=== PATIENT | male | born 1980 | race Caucasian/White ===

== ENCOUNTER 2017-08-24 12:48 | Day surgery (SDC) | payer BC, OTHER ==
[~2017-08-24 12:48] MED LIST: Acetaminophen/HYDROcodone 325-5 MG Tab PO PRN; Lactated Ringers 1,000 ML IV SCH; ceFAZolin 1 GM in Premix Bag 1 BAG IV SCH
[2017-08-24] MEDS ORDERED: Bupivacaine 0.5% 10 ML SDV ONE (13:59)
--- NOTE | 2017-08-24 14:38 | PCM.PREANE ---
Preanesthetic Assessment - Anesthesia/Transfusion/Family Hx Anesthesia History: Prior Anesthesia Without Reaction Transfusion History: No Prior Transfusion(s) - Review of Systems General: No Symptoms Pulmonary: No Symptoms Cardiovascular: No Symptoms Gastrointestinal: No Symptoms Neurological: No Symptoms Other: Reports: None - Physical Assessment NPO Status Date: 08/23/17 NPO Status Time: 21:00 O2 Sat by Pulse Oximetry: 97 Respiratory Rate: 16 Vital Signs: Last Vital Signs Temp 98.1 F 08/24/17 13:00 Pulse 72 08/24/17 13:00 Resp 16 08/24/17 13:00 BP 124/82 08/24/17 13:00 Pulse Ox 97 08/24/17 13:00 Height: 5 ft 7.5 in Weight: 79.379 kg ASA Class: 1 Mental Status: Alert & Oriented x3 Airway Class: Mallampati = 1 Dentition: Reports: Normal Dentition Thyro-Mental Finger Breadths: 3 Mouth Opening Finger Breadths: 3 ROM/Head Extension: Full Lungs: Clear to Auscultation, Normal Respiratory Effort Cardiovascular: Regular Rate, Regular Rhythm - Allergies Allergies/Adverse Reactions: Allergies Allergy/AdvReac Type Severity Reaction Status Date / Time No Known Allergies Allergy Verified 08/22/17 09:43 - Acknowledgements Anesthesia Type Planned: General Anesthesia, MAC Pt an Appropriate Candidate for the Planned Anesthesia: Yes Alternatives and Risks of Anesthesia Discussed w Pt/Guardian: Yes Pt/Guardian Understands and Agrees with Anesthesia Plan: Yes PreAnesthesia Questionnaire HEENT History: Reports: Other (See Below) Other HEENT History: wears glasses/contacts Cardiovascular History: Reports: None Respiratory History: Reports: None Gastrointestinal History: Reports: None Genitourinary History: Reports: None Musculoskeletal History: Reports: None Neurological History: Reports: None Psychiatric History: Reports: None Endocrine/Metabolic History: Reports: None Hematologic History: Reports: None Immunologic History: Reports: None Oncologic (Cancer) History: Reports: None Dermatologic History: Reports: None - Past Surgical History Head Surgeries/Procedures: Reports: None HEENT Surgical History: Reports: Other (See Below) Other HEENT Surgeries/Procedures: eye surgery at 5 y/o - SUBSTANCE USE Smoking Status *Q: Never Smoker Recreational Drug Use History: No - HOME MEDS Home Medications: Home Meds . [No Known Home Meds] 08/22/17 [History] - CURRENT (IN HOUSE) MEDS Current Meds: Current Medications Hydrocodone Bitart/Acetaminophen ([place] 325-5 Mg) 1 - 2 tab PO Q4H PRN PRN Reason: Pain Cefazolin Sodium/Dextrose 1 gm (/ Premix) 50 mls @ 100 mls/hr IV ONCALL CHICA Lactated Ringer's (Ringers, Lactated) 1,000 mls @ 100 mls/hr IV ASD[facility]ED [facility] Last Admin: 08/24/17 13:10 Dose: 100 mls/hr Discontinued Medications Bupivacaine HCl (Sensorcaine-Mpf 0.5%) Confirm Administered Dose 10 ml .ROUTE .STK-MED ONE Stop: 08/24/17 14:00
[2017-08-24] MEDS ORDERED: Propofol 200 MG/20 ML SDV ONE (14:40)
[2017-08-24] MEDS ORDERED: Lidocaine 2% 5 ML SDV ONE (14:40)
[2017-08-24] MEDS ORDERED: fentaNYL 100 MCG/2 ML SDV ONE (14:41)
[2017-08-24] MEDS ORDERED: Midazolam 1 MG/ML 2 ML SDV ONE (14:41)
--- NOTE | 2017-08-24 16:07 | PCM.OPNOTE ---
- General Post-Op/Procedure Note Date of Surgery/Procedure: 08/24/17 Operative Procedure(s): Excision bony nodule R olecranon Post-Op Diagnosis: Bony nodule R elbow Anesthesia Technique: General LMA Primary Surgeon: Aileen Elizabeth Lead Atg Developer: Daniel Mayo in mLs: 5 Condition: Good Free Text/Narrative:: tt= #[id number]
[2017-08-24] MEDS ORDERED: fentaNYL 100 MCG/2 ML SDV IVPUSH PRN (16:14)
--- NOTE | 2017-08-24 16:35 | PCM.POSTAN ---
POST ANESTHESIA ASSESSMENT - MENTAL STATUS Mental Status: Alert, Oriented - RESPIRATORY Respiratory Status: Respiratory Rate WNL, Airway Patent, O2 Saturation Stable - CARDIOVASCULAR CV Status: Pulse Rate WNL, Blood Pressure Stable - GASTROINTESTINAL GI Status: No Symptoms - POST OP HYDRATION Hydration Status: Adequate & Stable
--- NOTE | 2017-08-24 17:03 | PCM48HPAN ---
Post Anesthesia Note - EVALUATION WITHIN 48HRS OF ANESTHETIC Vital Signs in Normal Range: Yes Patient Participated in Evaluation: Yes Respiratory Function Stable: Yes Airway Patent: Yes Cardiovascular Function Stable: Yes Hydration Status Stable: Yes Pain Control Satisfactory: Yes Nausea and Vomiting Control Satisfactory: Yes Mental Status Recovered: Yes Resp Rate: 15
--- NOTE | 2017-08-25 08:34 | OR ---
SURGEON: Aileen Elizabeth MD DATE OF PROCEDURE: 08/24/2017 PREOPERATIVE DIAGNOSIS: Painful bony nodule, right elbow. POSTOPERATIVE DIAGNOSIS: Painful bony nodule, right elbow. PROCEDURE: Excision of bony nodule, right elbow. ARBORIST CLIMBER: Daniel Mayo MD, PGY3. ANESTHESIA: General. ESTIMATED BLOOD LOSS: 5 mL. TOURNIQUET TIME: . COMPLICATIONS: None. DVT PROPHYLAXIS: Not indicated. IMPLANTS USED: None. BRIEF HISTORY: Daniel is a 37-year-old male, who has had complaint of point tenderness over the tip of his elbow with pressure. He is able to isolate the pain to one small area and states he feels there is a bony nodule present. X-rays were negative. He had tried elbow pad, as well as conservative treatment, which had not given him lasting relief. At that time, I recommended surgical intervention. The risks and goals of procedure were discussed with the patient and were documented preoperatively. He agreed to proceed. DESCRIPTION OF PROCEDURE: The patient was properly identified and brought to the operating room. He was transferred from the OR cart and placed on the operating room table in supine position. General anesthesia was administered. After adequate anesthesia was obtained, a well-padded tourniquet was applied to the right upper extremity. The right upper extremity was then prepped in standard fashion using ChloraPrep solution. It was then sterilely draped. A time-out was performed to ensure correct site and procedure. Preoperative antibiotics were given. The surgical site had been marked preoperatively. The tourniquet was inflated to 250 mmHg. The site of the tenderness had been identified preoperatively. The marking was still in place. An incision was made centered over this. Subcutaneous tissues were dissected down to the level of the olecranon. A small bony nodule was palpable. This was removed with a rongeur. No inflammation was noted in the area. The wound was then copiously irrigated with saline solution. Tourniquet was deflated. No excess bleeding was noted. The deep tissues were closed with 3-0 Vicryl and the skin was closed with a running 3-0 nylon. 0.5% Marcaine was injected along the wound. Xeroform gauze was placed over the wound and a bulky dressing was applied. He was awakened from his anesthetic and transferred back to the operating room cart. He was brought to recovery room in stable condition. All needle and sponge counts were correct. KARL / JEROME /[id number]
--- NOTE | 2017-10-05 07:57 | OR ---
SURGEON: Aileen Elizabeth MD DATE OF PROCEDURE: 08/24/2017 ADDENDUM: The patient did undergo excision of a bony nodule from the right elbow on 08/24/2017. The bony nodule measured approximately 2 mm x 3 mm. This was removed without difficulty. For remainder of procedure, please refer to the original operative note. KARL / JEROME /[id number]
== END 2017-08-24 17:00 | disposition home or self-care (01) ==
LOC: MW.SDS 12:48
PROVIDERS: ATTEND Orthopaedic Surgery
DX: M89.8X2 Other specified disorders of bone, upper arm (principal); M77.8 Other enthesopathies, not elsewhere classified
CPT/HCPCS: 24120; J0694; J2250; J3010; J7120; 01740; J2704